=== PATIENT | male | born 1980 | race Caucasian/White ===

== ENCOUNTER 2018-04-11 20:03 | Emergency (ER) | payer OTHER ==
[~2018-04-11] VITALS: Ht 182.9 cm; Wt 100.7 kg
[2018-04-11 20:07] VITALS: BP 164/104
[2018-04-11] MEDS ORDERED: LIDOCAINE-MPF 2% ,5ML ONE (20:26)
[2018-04-11] MEDS ORDERED: LIDOCAINE 2%, 20ML SQ ONE (21:00)
[2018-04-11] MEDS ORDERED: BACITRACIN ZINC OINT 500U/GM, 0.9 GM ONE (21:02)
== END 2018-04-11 21:12 | disposition home or self-care (01) ==
LOC: ED 20:27
DX: S51.812A Laceration without foreign body of left forearm, initial encounter (principal); E78.5 Hyperlipidemia, unspecified; Z79.899 Other long term (current) drug therapy; Z88.0 Allergy status to penicillin; X58.XXXA Exposure to other specified factors, initial encounter; Y93.89 Activity, other specified; Y99.8 Other external cause status; Y92.830 Public park as the place of occurrence of the external cause
CPT/HCPCS: 96372; 99283; J3490